=== PATIENT | male | born 1935 | race Caucasian/White ===

== ENCOUNTER 2023-05-14 08:02 | Inpatient (IN) | payer OTHER, MEDICAID ==
[~2023-05-14] VITALS: Ht 167.6 cm; Wt 78.0 kg
[2023-05-14 09:11] LABS: Basophils # (auto) 0 10 ^3/uL (0-0.2); Basophils % (auto) 0.2 % (0.0-2.0); Eosinophils # (auto) 0 10 ^3/uL (0-0.8); Eosinophils % (auto) 0.1 % (0.0-7.0); Hematocrit 42.1 % (41.0-53.0); Hemoglobin 13.8 g/dL (13.5-17.5); Lymphocytes # (auto) 0.4 10 ^3/uL (0.4-5.4); Lymphocytes % (auto) 5.2 % (10.0-50.0); Mean Corpuscular Hemoglobin 29.5 pg (28.0-32.0); Mean Corpuscular Hgb Conc. 32.7 g/dL (32.0-36.0); Mean Corpuscular Volume 90.3 fL (80.0-100.0); Monocytes # (auto) 0.8 10 ^3/uL (0-1.3); Monocytes % (auto) 11.1 % (0.0-12.0); Neutrophils # (auto) 5.7 10 ^3/uL (1.6-8.6); Neutrophils % (auto) 83.4 % (37.0-80.0); Red Blood Cells 4.67 10^6/uL (4.5-5.90); Red Cell Distribution Width 13.7 % (11.8-14.3); White Blood Cell 6.8 10^3/uL (4.4-10.8)
[2023-05-14 09:18] VITALS: PULSE 68; RESP 14; O2SAT 97
[2023-05-14 09:25] LABS: Alanine Aminotransferase 46 U/L (7-40); Alkaline Phosphatase 89 U/L (46-116); Anion Gap 11 (5-15); Aspartate Aminotransferase 41 U/L (13-40); BUN/Creatinine Ratio 23.2 (10.0-20.0); Blood Urea Nitrogen 19 mg/dL (9-23); Calcium 9.5 mg/dL (8.5-10.1); Carbon Dioxide 24 mmol/L (20-30); Chloride 103 mmol/L (98-107); Glucose 125 mg/dL (74-106); INR 1.29 (0.9-1.15); Partial Thromboplastin Time 29.6 SEC (24.5-34.5); Prothrombin Time 13.3 sec (9.3-11.8); Sodium 138 mmol/L (136-145)
[2023-05-14 09:26] LABS: Albumin 4.1 g/dL (3.2-4.8); Bilirubin, Total 1.1 mg/dL (0.2-1.0); Total Protein 6.4 g/dL (5.7-8.2)
[2023-05-14 11:46] LABS: Urine Bacteria NONE SEEN /hpf (None Seen); Urine Blood 3+ /uL (Negative); Urine Clarity CLOUDY (Clear); Urine Color Red (Yellow); Urine Protein, UAD 2+ (Negative); Urine Urobilinogen Normal (Negative); Urine WBC 1862 /hpf (0 - 3); Urine WBC Clumps PRESENT /hpf (None Seen)
[2023-05-14] MEDS ORDERED: cefTRIAXone 1GM/50ML D5W 50 ML IV ONE (14:45)
[2023-05-14] MEDS ORDERED: hydrALAZINE HCL 20 MG/ML VL IV PRN (14:45)
[2023-05-14] MEDS ORDERED: ONDANSETRON HCL 4 MG/2 ML VIAL IV PRN (14:45)
[2023-05-14] MEDS ORDERED: AMPICILLIN SOD 2GM INJ 2 GM in SODIUM CHL 0.9% 100 ML IV ONE (15:00)
[2023-05-14] MEDS ORDERED: FIN5T PO (18:25)
[2023-05-14] MEDS ORDERED: MONT-8 PO (18:25)
[2023-05-14] MEDS ORDERED: SOTA80TA PO (18:25)
[2023-05-14] MEDS ORDERED: DULO1CAP4 PO (18:25)
[2023-05-14] MEDS ORDERED: NITR100C6 PO (18:25)
[2023-05-14] MEDS ORDERED: RIV15T PO (18:25)
[2023-05-14] MEDS ORDERED: ATOR40TA52 PO (18:25)
[2023-05-14 18:28] VITALS: PULSE 86; RESP 16; O2SAT 97
[2023-05-14 20:00] VITALS: PULSE 64; RESP 16; O2SAT 96
[2023-05-14 22:00] VITALS: BP 124/58; PULSE 64; RESP 16; TEMP 99.7; O2SAT 96
[2023-05-15] MEDS: AMPICILLIN SOD 2GM INJ 2 GM in SODIUM CHL 0.9% 100 ML IV SCH ×5 (01:36→23:22)
[2023-05-15 05:00] VITALS: BP 129/71; PULSE 70; RESP 18; TEMP 99; O2SAT 94
[2023-05-15 08:46] LABS: Basophils # (auto) 0 10 ^3/uL (0-0.2); Basophils % (auto) 0.4 % (0.0-2.0); Eosinophils # (auto) 0 10 ^3/uL (0-0.8); Hematocrit 38.4 % (41.0-53.0); Hemoglobin 12.7 g/dL (13.5-17.5); Lymphocytes # (auto) 0.4 10 ^3/uL (0.4-5.4); Lymphocytes % (auto) 8.1 % (10.0-50.0); Mean Corpuscular Hemoglobin 29.5 pg (28.0-32.0); Mean Corpuscular Hgb Conc. 33.1 g/dL (32.0-36.0); Monocytes # (auto) 0.5 10 ^3/uL (0-1.3); Monocytes % (auto) 9.4 % (0.0-12.0); Neutrophils % (auto) 82.1 % (37.0-80.0); Nucleated Red Blood Cells % 0.1 %; Red Blood Cells 4.32 10^6/uL (4.5-5.90); Red Cell Distribution Width 13.4 % (11.8-14.3); White Blood Cell 4.9 10^3/uL (4.4-10.8)
[2023-05-15 08:52] LABS: Chloride 102 mmol/L (98-107); Potassium 3.6 mmol/L (3.5-5.1); Sodium 137 mmol/L (136-145)
[2023-05-15 08:53] LABS: Anion Gap 9 (5-15); Calcium 9.5 mg/dL (8.5-10.1); Carbon Dioxide 26 mmol/L (20-30)
[2023-05-15 08:58] LABS: BUN/Creatinine Ratio 14.5 (10.0-20.0); Blood Urea Nitrogen 11 mg/dL (9-23); Glucose 105 mg/dL (74-106)
[2023-05-15] MEDS ORDERED: cefTRIAXone 1GM/50ML D5W 50 ML IV SCH (09:00)
[2023-05-15 09:14] VITALS: BP_SYST 121; BP_SYST 150; BP_DIAS 65; BP_DIAS 74; PULSE 65; PULSE 68; RESP 16; RESP 19; TEMP 98; TEMP 98.3; O2SAT 93; O2SAT 99
[2023-05-15] MEDS: MONTELUKAST SODIUM 10 MG TAB PO SCH (09:49)
[2023-05-15] MEDS: FINASTERIDE 5 MG TAB PO SCH (09:49)
[2023-05-15] MEDS: ATORVASTATIN 20 MG TAB PO SCH (09:50)
[2023-05-15] MEDS: SOTALOL HCL 80 MG TAB PO SCH (09:50)
[2023-05-15] MEDS ORDERED: RIVAROXABAN 15 MG TAB PO SCH (10:00)
[2023-05-15 13:00] VITALS: BP 136/70; PULSE 70; RESP 17; TEMP 97.9; O2SAT 97
[2023-05-15 17:00] VITALS: BP 122/63; PULSE 71; RESP 19; TEMP 99.8; O2SAT 96
[2023-05-15 20:00] VITALS: PULSE 71; RESP 18; O2SAT 96
[2023-05-15 22:00] VITALS: BP 120/57; PULSE 63; RESP 22; TEMP 98.4; O2SAT 95
[2023-05-16 05:00] VITALS: BP 125/59; PULSE 54; RESP 19; TEMP 98; O2SAT 96
[2023-05-16] MEDS: AMPICILLIN SOD 2GM INJ 2 GM in SODIUM CHL 0.9% 100 ML IV SCH ×3 (05:33→19:42)
[2023-05-16 06:24] LABS: Hematocrit 36.8 % (41.0-53.0); Hemoglobin 12.5 g/dL (13.5-17.5); Mean Corpuscular Hgb Conc. 33.9 g/dL (32.0-36.0); Mean Corpuscular Volume 88.5 fL (80.0-100.0); Red Blood Cells 4.16 10^6/uL (4.5-5.90); Red Cell Distribution Width 13.7 % (11.8-14.3); White Blood Cell 5.8 10^3/uL (4.4-10.8)
[2023-05-16 06:52] LABS: Chloride 102 mmol/L (98-107); Potassium 3.5 mmol/L (3.5-5.1); Sodium 136 mmol/L (136-145)
[2023-05-16 06:53] LABS: Anion Gap 8 (5-15); Carbon Dioxide 26 mmol/L (20-30)
[2023-05-16 06:54] LABS: Calcium 9.1 mg/dL (8.7-10.4)
[2023-05-16 06:58] LABS: Glucose 98 mg/dL (74-106)
[2023-05-16 06:59] LABS: Basophils % (manual) 0 (0.0-2.0); Blast Cells 0; Blood Urea Nitrogen 11 mg/dL (9-23); Metamyelocytes % 0; Myelocytes % 0; Promyelocytes % 0; Reactive Lymphocytes 0
[2023-05-16 08:42] LABS: Band Neutrophils % (manual) 4; Eosinophils % (manual) 1 (0-7); Lymphocytes % (manual) 19 (10.0-50.0); Monocytes % (manual) 19 (0-12); Platelet Estimate Decreased; RBC Morphology Normal
[2023-05-16 09:00] VITALS: BP 101/46; PULSE 56; RESP 14; TEMP 97.6; O2SAT 97
[2023-05-16] MEDS: SOTALOL HCL 80 MG TAB PO SCH (10:00)
[2023-05-16] MEDS: FINASTERIDE 5 MG TAB PO SCH (10:04)
[2023-05-16] MEDS: MONTELUKAST SODIUM 10 MG TAB PO SCH (10:04)
[2023-05-16] MEDS: ATORVASTATIN 20 MG TAB PO SCH (10:04)
[2023-05-16 13:00] VITALS: BP 132/71; PULSE 72; RESP 16; TEMP 97.6; O2SAT 96
[2023-05-16 17:00] VITALS: BP 141/78; PULSE 87; RESP 17; TEMP 97.9; O2SAT 95
[2023-05-16 20:00] VITALS: PULSE 87; RESP 18; O2SAT 95
[2023-05-16 22:00] VITALS: BP 131/79; PULSE 70; RESP 22; TEMP 97.9; O2SAT 98
[2023-05-16 22:06] LABS: COVID19 ANTIGEN SOFIA FIA NEGATIVE (NEGATIVE)
[2023-05-16 22:15] LABS: Rapid Influenza A Negative (Negative); Rapid Influenza B Negative (Negative)
[2023-05-17] MEDS: AMPICILLIN SOD 2GM INJ 2 GM in SODIUM CHL 0.9% 100 ML IV SCH ×2 (00:35→06:24)
[2023-05-17 05:00] VITALS: BP 126/63; PULSE 55; RESP 20; TEMP 97.7; O2SAT 97
[2023-05-17 07:00] LABS: Basophils # (auto) 0 10 ^3/uL (0-0.2); Basophils % (auto) 0.5 % (0.0-2.0); Eosinophils # (auto) 0.1 10 ^3/uL (0-0.8); Eosinophils % (auto) 2.3 % (0.0-7.0); Hematocrit 38.1 % (41.0-53.0); Hemoglobin 12.7 g/dL (13.5-17.5); Lymphocytes # (auto) 1.1 10 ^3/uL (0.4-5.4); Lymphocytes % (auto) 21.6 % (10.0-50.0); Mean Corpuscular Hemoglobin 29.3 pg (28.0-32.0); Mean Corpuscular Hgb Conc. 33.2 g/dL (32.0-36.0); Mean Corpuscular Volume 88.4 fL (80.0-100.0); Monocytes # (auto) 0.7 10 ^3/uL (0-1.3); Monocytes % (auto) 13.6 % (0.0-12.0); Neutrophils # (auto) 3.2 10 ^3/uL (1.6-8.6); Red Blood Cells 4.32 10^6/uL (4.5-5.90); Red Cell Distribution Width 13.6 % (11.8-14.3); White Blood Cell 5.2 10^3/uL (4.4-10.8)
[2023-05-17 07:05] LABS: Chloride 105 mmol/L (98-107); Potassium 3.6 mmol/L (3.5-5.1); Sodium 141 mmol/L (136-145)
[2023-05-17 07:06] LABS: Carbon Dioxide 27 mmol/L (20-30)
[2023-05-17 07:11] LABS: BUN/Creatinine Ratio 16.4 (10.0-20.0); Blood Urea Nitrogen 10 mg/dL (9-23); Glucose 98 mg/dL (74-106)
[2023-05-17 07:18] LABS: Anion Gap 9 (5-15)
[2023-05-17] MEDS: MONTELUKAST SODIUM 10 MG TAB PO SCH (10:04)
[2023-05-17] MEDS: ATORVASTATIN 20 MG TAB PO SCH (10:04)
[2023-05-17] MEDS: levoFLOXacin 500MG 100 ML IV SCH (10:04)
[2023-05-17] MEDS: SOTALOL HCL 80 MG TAB PO SCH (10:05)
[2023-05-17 10:23] VITALS: BP 130/75; PULSE 56; RESP 17; TEMP 97.5; O2SAT 99
[2023-05-17 13:57] VITALS: BP 148/75; PULSE 77; RESP 18; TEMP 97.7; O2SAT 96
[2023-05-17 17:00] VITALS: BP 122/70; PULSE 65; RESP 18; TEMP 97.8; O2SAT 98
[2023-05-17 20:00] VITALS: PULSE 65; RESP 18; O2SAT 98
[2023-05-17 22:00] VITALS: BP 106/66; PULSE 68; RESP 19; TEMP 97.9; O2SAT 97
[2023-05-18 05:00] VITALS: BP 108/71; PULSE 65; RESP 17; TEMP 98.4; O2SAT 97
[2023-05-18 08:45] VITALS: BP 100/56; PULSE 71; RESP 20; TEMP 97.6; O2SAT 97
[2023-05-18] MEDS ORDERED: CIPROFLOXACIN 400MG/200ML 200 ML IV ONE (08:53)
[2023-05-18] MEDS ORDERED: fentaNYL CITRATE 100 MCG/2 ML VL ONE (09:24)
[2023-05-18] MEDS: levoFLOXacin 500MG 100 ML IV SCH (09:54)
[2023-05-18] MEDS: SOTALOL HCL 80 MG TAB PO SCH (09:55)
[2023-05-18] MEDS: ATORVASTATIN 20 MG TAB PO SCH (09:55)
[2023-05-18] MEDS: MONTELUKAST SODIUM 10 MG TAB PO SCH (09:56)
[2023-05-18] MEDS: FINASTERIDE 5 MG TAB PO SCH (09:56)
[2023-05-18] MEDS ORDERED: PROPOFOL 10 MG/ML 20 ML IV ONE (09:59)
[2023-05-18] MEDS ORDERED: ePHEDrine SULFATE 50 MG/ML AMP ONE (09:59)
[2023-05-18 10:47] VITALS: RESP 10; O2SAT 97
[2023-05-18] MEDS ORDERED: HYDROmorphone HCL 2 MG/ML VL/or syr IV PRN (11:00)
[2023-05-18] MEDS ORDERED: ONDANSETRON HCL 4 MG/2 ML VIAL IV PRN (11:00)
[2023-05-18] MEDS: ACETAMINOPHEN 325 MG TAB PO PRN ×2 (12:45→22:48)
[2023-05-18 13:00] VITALS: BP 107/66; PULSE 66; RESP 16; TEMP 98.1; O2SAT 96
[2023-05-18 13:18] LABS: Basophils # (auto) 0 10 ^3/uL (0-0.2); Basophils % (auto) 0.5 % (0.0-2.0); Eosinophils # (auto) 0.1 10 ^3/uL (0-0.8); Hematocrit 40.3 % (41.0-53.0); Hemoglobin 13.3 g/dL (13.5-17.5); Lymphocytes # (auto) 1.6 10 ^3/uL (0.4-5.4); Lymphocytes % (auto) 28.5 % (10.0-50.0); Mean Corpuscular Hemoglobin 29.3 pg (28.0-32.0); Mean Corpuscular Volume 88.9 fL (80.0-100.0); Monocytes # (auto) 0.6 10 ^3/uL (0-1.3); Monocytes % (auto) 10.4 % (0.0-12.0); Neutrophils # (auto) 3.4 10 ^3/uL (1.6-8.6); Neutrophils % (auto) 59.6 % (37.0-80.0); Nucleated Red Blood Cells % 0.2 %; Red Blood Cells 4.53 10^6/uL (4.5-5.90); Red Cell Distribution Width 13.6 % (11.8-14.3); White Blood Cell 5.8 10^3/uL (4.4-10.8)
[2023-05-18 13:25] LABS: Carbon Dioxide 25 mmol/L (20-30); Chloride 107 mmol/L (98-107); Potassium 3.6 mmol/L (3.5-5.1)
[2023-05-18 13:31] LABS: BUN/Creatinine Ratio 9.2 (10.0-20.0); Blood Urea Nitrogen 6 mg/dL (9-23); Glucose 103 mg/dL (74-106)
[2023-05-18 14:37] LABS: Anion Gap 8 (5-15); Sodium 140 mmol/L (136-145)
[2023-05-18 16:50] VITALS: BP 106/65; PULSE 65; RESP 16; TEMP 97.5; O2SAT 95
[2023-05-19] MEDS ORDERED: ERTAPENEM SOD INJ 1 GM in SODIUM CHL 0.9% 50 ML IV ONE (00:15)
[2023-05-19] MEDS: ACETAMINOPHEN 325 MG TAB PO PRN ×3 (04:51→19:49)
[2023-05-19 05:00] VITALS: BP 91/66; PULSE 65; RESP 21; O2SAT 94
[2023-05-19 07:31] LABS: Chloride 109 mmol/L (98-107); Potassium 3.6 mmol/L (3.5-5.1); Sodium 140 mmol/L (136-145)
[2023-05-19 07:32] LABS: Anion Gap 7 (5-15); Calcium 8.5 mg/dL (8.7-10.4); Carbon Dioxide 24 mmol/L (20-30)
[2023-05-19 07:34] LABS: Basophils # (auto) 0 10 ^3/uL (0-0.2); Basophils % (auto) 0.4 % (0.0-2.0); Eosinophils # (auto) 0.1 10 ^3/uL (0-0.8); Eosinophils % (auto) 0.7 % (0.0-7.0); Hematocrit 38.1 % (41.0-53.0); Hemoglobin 12.4 g/dL (13.5-17.5); Lymphocytes # (auto) 1.4 10 ^3/uL (0.4-5.4); Mean Corpuscular Hemoglobin 29.4 pg (28.0-32.0); Mean Corpuscular Hgb Conc. 32.6 g/dL (32.0-36.0); Mean Corpuscular Volume 90.2 fL (80.0-100.0); Monocytes # (auto) 1.1 10 ^3/uL (0-1.3); Monocytes % (auto) 14.6 % (0.0-12.0); Neutrophils # (auto) 5.1 10 ^3/uL (1.6-8.6); Neutrophils % (auto) 66.3 % (37.0-80.0); Red Blood Cells 4.22 10^6/uL (4.5-5.90); Red Cell Distribution Width 13.7 % (11.8-14.3); White Blood Cell 7.7 10^3/uL (4.4-10.8)
[2023-05-19 07:37] LABS: Glucose 103 mg/dL (74-106)
[2023-05-19 07:50] LABS: Blood Urea Nitrogen 11 mg/dL (9-23)
[2023-05-19 09:00] VITALS: BP 103/66; PULSE 65; RESP 20; TEMP 97.7; O2SAT 96
[2023-05-19] MEDS ORDERED: MORPHINE SULFATE INJ 2 MG/ml SYRG IV PRN (10:00)
[2023-05-19] MEDS: MONTELUKAST SODIUM 10 MG TAB PO SCH (10:50)
[2023-05-19] MEDS: SOTALOL HCL 80 MG TAB PO SCH ×2 (10:51→11:01)
[2023-05-19] MEDS: FINASTERIDE 5 MG TAB PO SCH (10:51)
[2023-05-19] MEDS: ATORVASTATIN 20 MG TAB PO SCH (10:51)
[2023-05-19 13:00] VITALS: BP 107/64; PULSE 66; RESP 18; TEMP 98.1; O2SAT 96
[2023-05-19 17:00] VITALS: BP 105/62; PULSE 66; RESP 18; TEMP 98.2; O2SAT 98
[2023-05-20] MEDS: ACETAMINOPHEN 325 MG TAB PO PRN ×2 (00:31→14:37)
[2023-05-20 05:00] VITALS: BP 95/69; PULSE 65; RESP 21; TEMP 98.4; O2SAT 92
[2023-05-20] MEDS: ERTAPENEM SOD INJ 1 GM in SODIUM CHL 0.9% 50 ML IV SCH ×2 (05:46→10:33)
[2023-05-20 06:42] LABS: Alanine Aminotransferase 28 U/L (7-40); Albumin 3.2 g/dL (3.2-4.8); Alkaline Phosphatase 71 U/L (46-116); Anion Gap 8 (5-15); Aspartate Aminotransferase 22 U/L (13-40); BUN/Creatinine Ratio 14.3 (10.0-20.0); Blood Urea Nitrogen 9 mg/dL (9-23); Calcium 8.5 mg/dL (8.7-10.4); Carbon Dioxide 24 mmol/L (20-30); Chloride 108 mmol/L (98-107); Glucose 101 mg/dL (74-106); Potassium 3.5 mmol/L (3.5-5.1); Sodium 140 mmol/L (136-145)
[2023-05-20 06:43] LABS: Bilirubin, Total 0.7 mg/dL (0.2-1.0)
[2023-05-20 07:02] LABS: Basophils # (auto) 0 10 ^3/uL (0-0.2); Basophils % (auto) 0.4 % (0.0-2.0); Eosinophils # (auto) 0.1 10 ^3/uL (0-0.8); Eosinophils % (auto) 1.2 % (0.0-7.0); Hematocrit 34.6 % (41.0-53.0); Hemoglobin 11.6 g/dL (13.5-17.5); Lymphocytes # (auto) 1.9 10 ^3/uL (0.4-5.4); Lymphocytes % (auto) 22.2 % (10.0-50.0); Mean Corpuscular Hemoglobin 29.6 pg (28.0-32.0); Mean Corpuscular Hgb Conc. 33.5 g/dL (32.0-36.0); Mean Corpuscular Volume 88.3 fL (80.0-100.0); Monocytes # (auto) 0.8 10 ^3/uL (0-1.3); Monocytes % (auto) 9.4 % (0.0-12.0); Neutrophils # (auto) 5.8 10 ^3/uL (1.6-8.6); Neutrophils % (auto) 66.8 % (37.0-80.0); Nucleated Red Blood Cells % 0.1 %; Red Blood Cells 3.92 10^6/uL (4.5-5.90); White Blood Cell 8.7 10^3/uL (4.4-10.8)
[2023-05-20 07:09] LABS: Total Protein 5.4 g/dL (5.7-8.2)
[2023-05-20 08:46] VITALS: BP 102/68; PULSE 65; RESP 17; TEMP 98.4; O2SAT 93
[2023-05-20] MEDS: MONTELUKAST SODIUM 10 MG TAB PO SCH (09:05)
[2023-05-20] MEDS: FINASTERIDE 5 MG TAB PO SCH (09:05)
[2023-05-20] MEDS: SOTALOL HCL 80 MG TAB PO SCH (09:05)
[2023-05-20] MEDS: ATORVASTATIN 20 MG TAB PO SCH (09:06)
[2023-05-20 13:19] VITALS: BP 108/70; PULSE 65; RESP 16; TEMP 98.4; O2SAT 98
[2023-05-21 05:00] VITALS: BP 119/71; PULSE 64; RESP 18; TEMP 97.9; O2SAT 98
[2023-05-21 08:00] VITALS: BP 105/70; PULSE 65; RESP 18; TEMP 98; O2SAT 95
[2023-05-21] MEDS: ERTAPENEM SOD INJ 1 GM in SODIUM CHL 0.9% 50 ML IV SCH (09:56)
[2023-05-21] MEDS: FINASTERIDE 5 MG TAB PO SCH (09:57)
[2023-05-21] MEDS: MONTELUKAST SODIUM 10 MG TAB PO SCH (09:57)
[2023-05-21] MEDS: SOTALOL HCL 80 MG TAB PO SCH (09:57)
[2023-05-21] MEDS: ATORVASTATIN 20 MG TAB PO SCH (09:57)
[2023-05-21 12:00] VITALS: BP 105/67; PULSE 68; RESP 16; TEMP 97.5; O2SAT 93
[2023-05-21 16:06] LABS: COVID19 ANTIGEN SOFIA FIA NEGATIVE (NEGATIVE)
[2023-05-21 16:54] VITALS: BP 118/65; PULSE 63; RESP 18; TEMP 97.8; O2SAT 98
[2023-05-21 17:00] VITALS: BP 118/65; PULSE 63; RESP 18; TEMP 97.8; O2SAT 98
== END 2023-05-21 18:30 | DRG 668 ==
LOC: EDBD 08:02 → ER 08:02 → OVERFLOW 13:20 → EAST 18:31
PROVIDERS: ADMIT Internal Medicine; ATTEND Emergency Medicine
PROC: 0TBB8ZX Excision of Bladder, Via Natural or Artificial Opening Endoscopic, Diagnostic (ICD-10-PCS; 2023-05-18)
PROC: 0TCB8ZZ Extirpation of Matter from Bladder, Via Natural or Artificial Opening Endoscopic (ICD-10-PCS; 2023-05-18)
PROC: 0TBC8ZZ Excision of Bladder Neck, Via Natural or Artificial Opening Endoscopic (ICD-10-PCS; principal; 2023-05-18 09:41)
PROC: 05HA33Z Insertion of Infusion Device into Left Brachial Vein, Percutaneous Approach (ICD-10-PCS; 2023-05-19)
PROC: B54NZZA Ultrasonography of Left Upper Extremity Veins, Guidance (ICD-10-PCS; 2023-05-19)
DX: D49.4 Neoplasm of unspecified behavior of bladder (principal); I50.43 Acute on chronic combined systolic (congestive) and diastolic (congestive) heart failure; N39.0 Urinary tract infection, site not specified; N40.0 Benign prostatic hyperplasia without lower urinary tract symptoms; N21.0 Calculus in bladder; N28.1 Cyst of kidney, acquired; I11.0 Hypertensive heart disease with heart failure; R31.0 Gross hematuria; N32.89 Other specified disorders of bladder; I48.91 Unspecified atrial fibrillation; Z20.822 Contact with and (suspected) exposure to COVID-19; J44.9 Chronic obstructive pulmonary disease, unspecified; E78.5 Hyperlipidemia, unspecified; Z86.73 Personal history of transient ischemic attack (TIA), and cerebral infarction without residual deficits; Z87.891 Personal history of nicotine dependence; Z95.810 Presence of automatic (implantable) cardiac defibrillator
CPT/HCPCS: 36415; 71045; 74176; 80048; 80053; 81001; 83880; 84484; 85007; 85025; 85027; 85610; 85730; 87086; 87088; 87186; 87426; 87804; 93005; 97110; 97116; 97163; 97530; 99291; G0378; J1335; J1956; J2704